=== PATIENT | female | born 1945 ===

== ENCOUNTER 2021-09-26 13:43 | Outpatient (REF) | payer OTHER, SELFPAY ==
--- NOTE | ~2021-09-26 | XR_ITS ---
EXAMINATION: XR ANKLE, RIGHT CLINICAL INFORMATION: Pain COMPARISON: Right ankle x-ray 04/07/2011 TECHNIQUE: AP, lateral, and mortise views of the right ankle. FINDINGS: Visualized portion of the distal tibia and fibula demonstrate no fracture. Ankle mortise is maintained. There is prominent asymmetric soft tissue swelling of the lateral ankle. No radiopaque foreign body. XR/XR ankle RT min 3V IMPRESSION: Soft tissue swelling of the lateral ankle without fracture.
== END 2021-09-26 13:44 | disposition home or self-care (01) ==
LOC: HO.HMGCX 13:43
PROVIDERS: Absent Provider Orthopaedic Surgery Adult Reconstructive Orthopaedic Surgery; PCP Internal Medicine; Visit Provider Physician Assistant
DX: M25.571 Pain in right ankle and joints of right foot (principal)
CPT/HCPCS: 73610

== ENCOUNTER 2022-11-06 13:08 | Emergency (ER) | payer OTHER, SELFPAY ==
--- NOTE | ~2022-11-06 | XR_ITS ---
EXAMINATION: XR CHEST CLINICAL INFORMATION: 77-year-old female with atrial fibrillation COMPARISON: None available. TECHNIQUE: Frontal view of the chest was obtained. FINDINGS: There is a lobulated lesion in the left lower lobe questionably bronchiectatic lung versus avulsion of subdiaphragmatic bowel. There is left lower lobe opacity due to pneumonia. Increased interstitial markings throughout the right lung most likely due to airspace disease also. Cardiomediastinal silhouette is unremarkable. XR/XR chest 1V IMPRESSION: Left basilar airspace disease and questionably avulsion of bowel loop through the hernia versus cystic bronchiectasis. Correlate with CT scan
--- NOTE | ~2022-11-06 | CT_ITS ---
EXAMINATION: CT CHEST WITHOUT CONTRAST CLINICAL INFORMATION: Abnormal chest x-ray with positive Covid COMPARISON: Chest radiograph 11/06/2022, upper GI 10/17/2017 TECHNIQUE: Multidetector volumetric CT imaging of the chest was done. Axial MIP volume rendering provided. Sagittal and coronal reformatted images were obtained. This CT examination was performed using dose optimization techniques as appropriate, variously including the following: *Automated exposure control *Adjustment of mA and/or kV according to patient size (this includes techniques or standardized protocols for targeted exams where dose is matched to indication/reason for exam; i.e. extremities or head) *Use of iterative reconstruction technique DLP: 170 mGy-cm FINDINGS: LUNGS: A large diaphragmatic hernia seen containing colon, the entire stomach and small bowel which extends up to the level of the aortic arch. There are underlying changes of COPD as well as some peripheral tree-in-bud abnormalities suggesting inflammatory disease. No groundglass infiltrates are seen to suggest Covid infection. MEDIASTINUM: See discussion above regarding large diaphragmatic hernia in the mediastinum CORONARY ARTERY CALCIFICATION: None visualized on this study. PLEURA: There is no pleural effusion. No pleural mass or thickening. AXILLA: No lymphadenopathy. UPPER ABDOMEN: Hepatic cysts are present. OSSEOUS STRUCTURES: Marked degenerative changes are present in the spine with scoliosis CT/CT chest wo IV con IMPRESSION: 1. Large diaphragmatic hernia containing stomach, colon and small bowel. 2. Underlying COPD. 3. Incidental note made of hepatic cysts and degenerative changes in the spine. 4. No suspicious pulmonary nodules are seen. There are some peripheral tree-in-bud abnormalities suggesting inflammatory disease. 5. No groundglass infiltrates are seen to suggest Covid disease. Fleischner guidelines were followed.
--- NOTE | 2022-11-06 13:24 | ECG_ITS ---
Test Reason : hld Blood Pressure : / mmHG Vent. Rate : 108 BPM Atrial Rate : 000 BPM P-R Int : 000 ms QRS Dur : 074 ms QT Int : 338 ms P-R-T Axes : 000 011 046 degrees QTc Int : 452 ms Atrial fibrillation with rapid ventricular response with premature ventricular or aberrantly conducted complexes Nonspecific T wave abnormality Abnormal ECG When compared with ECG of 11-NOV-2016 11:01, Atrial fibrillation has replaced Sinus rhythm Vent. rate has increased BY 43 BPM Nonspecific T wave abnormality now evident in Inferior leads Referred By: Marleny Keller Electronically Signed By:Maiocl Camara
[2022-11-06 13:31] VITALS: BP 110/60; BP 92/51; PULSE 160; PULSE 89; RESP 14; TEMP 36.9; O2SAT 97; BMI 23.7
--- NOTE | 2022-11-06 13:38 | ED_ITS ---
HPI - General Adult General Chief complaint: Arrhythmia/Palpitations Stated complaint: FEELS UNWELL,HR 178,97 S/P CARDIZEM,?COVID PER EMS Time Seen by Provider: 11/06/22 13:28 Source: patient, EMS, RN notes reviewed and old records reviewed Mode of arrival: EMS History of Present Illness HPI narrative: 77-year-old female with a past medical history of AFib on ASA, presenting to the ED complaining of generalized fatigue/lightheadedness and feeling unwell x 2 days. Patient was noted to be in AFib with RVR at rate of 178 by EMS, given 10 mg of IV Cardizem with good result. Patient states she believes she had COVID- 19. Denies chest pain, shortness of breath, abdominal pain, nausea/vomiting, pedal edema. Denies being on anticoagulation, muleser is Dr. Obrien from [facility] Onset (ago): day(s) Related Data Home Medications Medication Instructions Recorded Confirmed aspirin 81 mg tablet,delayed 81 mg PO DAILY 09/26/21 release atorvastatin 40 mg tablet 40 mg PO BEDTIME 09/26/21 ibuprofen 600 mg tablet 600 mg PO QID 09/26/21 Previous Rx's Medication Instructions Recorded ibuprofen 600 mg tablet 600 mg PO TID PRN pain #60 tabs 09/26/21 apixaban 5 mg tablet (Eliquis) 5 mg PO BID 30 days #60 tabs 11/06/22 Allergies Allergy/AdvReac Type Severity Reaction Status Date / Time No Known Allergies Allergy Verified 09/26/21 13:24 Review of Systems Review of Systems: Constitutional: No Fever, No Chills, +Fatigue, +Malaise ENT/Mouth: No Ear Pain, No Nasal Congestion, No sore throat, No Rhinorrhea, No Swallowing Difficulty Eyes: No Eye Pain, No Swelling, No Redness, No Vision Changes Cardiovascular: No Chest Pain, No SOB, No Edema, + Palpitations Respiratory: No Cough, No Sputum, No Dyspnea Gastrointestinal: No Nausea, No Vomiting, No Diarrhea, No Constipation, No Abdominal pain Genitourinary: No irregular bleeding, No Dysuria, No Urinary Frequency Musculoskeletal: No joint pain, No Myalgias, No Joint Swelling Skin: No Skin Lesions, No rash Neuro:+ Weakness, No Numbness, No Paresthesias, No Loss of Consciousness, +lightheaded, No Headache Yes all other systems are reviewed and are negative Constitutional: Constitutional: Reports as per HPI Neurologic: Denies Abnormal speech present [facility] Past Medical History Attestation statement: The following information was validated with the patient. Source: old records reviewed Social History Social History Advance Directives: No Advance Directives Information Provided: Yes Physical Exam ED Vital Signs: Vital Signs - 24 hr 11/06/22 13:31 11/06/22 17:44 11/06/22 22:00 Temperature 98.5 F 98.6 F Pulse Rate 89 80 74 Respiratory Rate 14 17 16 Blood Pressure 92/51 L 136/76 156/77 H Pulse Oximetry 97 95 96 Oxygen Delivery Method Room Air Room Air Room Air BMI result Body Mass Index 23.7 Const General: cooperative, healthy appearing, comfortable and no acute distress Orientation/consciousness: patient oriented x3 Limitations: no limitations HENMT Head: Yes normal to inspection and Yes atraumatic Ears: hearing grossly normal bilaterally General nose exam: Normal external nose present Face and sinus: Yes normal facial exam Eyes General: appearance normal, both eyes and all related structures EOM: EOMs intact bilaterally Neck Neck: Yes normal visual inspection and Yes no meningeal signs Resp Effort & Inspection: normal respiratory effort and no respiratory distress Auscultation: clear to auscultation bilaterally, no crackles, no rales, no rhonchi and no wheezes Cardio Rate: tachycardic Rhythm: abnormal rhythm Heart sounds: S1 normal heart sound present and S2 normal heart sound present GI Inspection: Yes normal to inspection Palpation (GI): Soft to palpation, nontender, no guarding and not rigid General: Yes no CVA tenderness Back/Spine/Pelvis Back: no CVA tenderness Skin Rashes: no rashes Wounds: no wounds Neuro General: patient oriented x3, tone normal, moves all extremities, no meningeal signs, no focal motor deficits and CN's II-XI intact bilaterally Cranial nerves: Yes CN's II-XII intact bilaterally and Yes Bilaterally intact EOM present Cognition (Neuro): normal cognition Speech: No Abnormal speech present Gait exam (Neuro): Normal gait present Motor exam (neuro): 5/5 motor strength present throughout and Pronator motor function not present Extrem General: Yes normal to inspection, Yes no pedal edema and Yes no calf tenderness Course Course Course Narrative: -patient's BP soft, additional Cardizem dose held, case discussed with Dr. Keller, will give 0.5 mg of IV Digoxin -153--mild leukopenia to 4.1. Troponin 284.7 > no priors to compare. Likely d emand ischemia from AFib with RVR. Patient continues to deny chest pain -COVID-19 positive >> low suspicion for PE > 1549--heart rate now 80's after IV Digoxin > appears patient is in sinus rhythm will obtain repeat EKG >> spoke with patients muleser Dr. Obrien, admits he previously recommended anticoagulation however patient refused. Is in agreement patient should be on AC, recommend Eliquis 5mg BID and discontinuation of ASA if patient is agreeable >> anticoagulation was discussed with patient including risk of CVA/PE with intermittent AFib, she is aware of risks and states she will think hard about it XR chest 1V IMPRESSION: Left basilar airspace disease and questionably avulsion of bowel loop through the hernia versus cystic bronchiectasis. Correlate with CT scan ?> will obtain CT for further evaluation -1729--ED care transferred to [facility] pending repeat troponin, CT, and dispo per results Reevaluation(s) Reevaluation #1: Patient's 2nd troponin did not increase by 50%. Chest CT negative for pneumonia and shows chronic large diaphragmatic hernia with colon/small bowel and stomach. Patient's repeat EKG sinus rhythm. Patient rate controlled. Case discussed with muleser Dr. Camara. He was send copy of patient's 3 EKGs and lab work. He was informed of patient's history, physical exam and diagnostics. He agreed patient could be discharged on Eliquis. Patient has follow-up with her muleser tomorrow. Patient informed to stop taking her aspirin. Patient will be discharged with Eliquis. Patient denies any chest pain shortness of breath abdominal pain, nausea, or vomiting. Patient denies constipation. Patient hernia can be followed outpatient. CT scan negative for bowel obstruction or incarcerated hernia. Time: 23:00 Medications Administered Discontinued Medications Generic Name Dose Route Start Last Admin Trade Name Freq PRN Reason Stop Dose Admin Aspirin 325 mg 11/06/22 15:35 11/06/22 17:17 Aspirin 325 Mg Tablet PO 11/06/22 15:36 325 mg ONCE ONE Administration Digoxin 0.5 mg 11/06/22 14:46 11/06/22 14:52 Digoxin 0.5 Mg/2 Ml Ampul IVPUSH 11/06/22 14:47 0.5 mg ONCE ONE Administration Diltiazem HCl 10 mg 11/06/22 13:49 11/06/22 14:52 Diltiazem Hcl 50 Mg/10 Ml Vial IVPUSH 11/06/22 13:50 Not Given STAT STA Sodium Chloride 1,000 mls @ 999 mls/hr 11/06/22 14:00 11/06/22 18:30 Ns IV 11/06/22 15:00 Infused .Q1H1M EDMOND Infusion Sodium Chloride 1,000 mls @ 999 mls/hr 11/06/22 15:30 11/06/22 18:31 Ns IV 11/06/22 16:30 Infused .Q1H1M EDMOND Infusion Medical Decision Making Medical Decision Making MDM Narrative: 77-year-old female with a past medical history of AFib on ASA, presenting to the ED complaining of generalized fatigue/lightheadedness and feeling unwell x 2 days. Patient was noted to be in AFib with RVR at rate of 178 by EMS, given 10 mg of IV Cardizem with good result. On exam mildly hypotensive 90s over 50s, heart rate during this riders evaluation 120s, lungs CTA, no focal neuro deficits, patient asymptomatic at present. Concern for AFib with RVR vs infectious etiology vs metabolic abnormalities. Lower suspicion for PE/ACS, CHF Plan: EKG, labs, CXR, IVF, rate control medication [id number] =3 > recommending anticoagulation Please refer to course for remaining clinical decision making, interpretation of labs/imaging results, and discussions with consultants and/or family members. Differential Diagnosis Differential Diagnoses: The differential diagnosis associated with the presentation includes As above Admission/Observation Consideration of admission/observation: Escalation of care including admission/observation considered Consult Healthcare Provider Management of the patient was discussed with: Sole Painter Lab Data [facility] Lab Attestation statement: I reviewed the patient's lab results. 11/06/22 14:39 11/06/22 13:34 Labs: Lab Results 11/06/22 11/06/22 11/06/22 Range/Units 13:34 13:34 14:36 WBC (4.8-10.8) X10*3/uL RBC (4.20-5.50) X10*6/uL Hgb (12.0-16.0) g/dl Hct (37.0-47.0) % MCV (80.0-98.0) fL MCH (27.0-33.0) pg MCHC (31.0-35.0) g/dl RDW (11.0-16.0) % Plt Count (160-400) X10*3/uL MPV (9.4-12.3) fL Immature Gran % (Auto) (0.0-0.4) % Neut % (Auto) (45-73) % Lymph % (Auto) (20-40) % Mcmullen % (Auto) (2-11) % Eos % (Auto) (0-4) % Baso % (Auto) (0-2) % Lymph # (Auto) (1.2-4.9) X10*3/uL Mcmullen # (Auto) (0.1-1.2) X10*3/uL Eos # (Auto) (0.0-0.4) X10*3/uL Baso # (Auto) (0.0-0.2) X10*3/uL Abs Immat Gran (auto) (0.00-0.03) X10*3/uL Absolute Neuts (auto) (2.0-8.3) x10*3/uL Absolute Nucleated RBC (0.0-0.012) X10*3/uL Nucleated RBC % (auto) (0.0-0.2) /100WBC Smear Tech's Comments PT 13.4 H (10.0-13.1) SEC INR 1.2 H (0.9-1.1) Sodium 142 (135-145) mmol/L Potassium 4.1 (3.3-5.1) mmol/L Chloride 108 (96-108) mmol/L Carbon Dioxide 26 (22-29) mmol/L Anion Gap 12 (12-20) BUN 15 (9-16) mg/dL Creatinine 0.89 (0.5-1.4) mg/dL Estim Creat Clear Calc 46.1 Estimated GFR > 60 Random Glucose 114 (60-115) mg/dL Calcium 8.0 L (8.4-10.2) mg/dL Magnesium 2.1 (1.6-2.6) mg/dL Total Bilirubin 0.4 (0.0-1.0) mg/dL AST 18 (5-31) U/L ALT 13 (0-31) U/L Alkaline Phosphatase 68 (39-117) U/L Troponin I High Sens (<3.5-17.0) ng/L B-Natriuretic Peptide (<100) pg/mL Total Protein 5.5 L (6.5-8.0) g/dL Albumin 3.3 L (3.5-5.0) g/dL Urine Color Urine Appearance Urine pH (5.0-9.0) Ur Specific [place] (1.005-1.025) Urine Protein (Neg-Trace) mg/dL Urine Glucose (UA) (Negative) mg/dL Urine Ketones (Negative) mg/dL Urine Blood (Negative) Urine Nitrite (Negative) Ur Leukocyte Esterase (Negative) Urine RBC (0-2) /HPF Urine WBC (0-5) /HPF Ur Squamous Epith Cells (0-2) /HPF Urine Bacteria (None Seen) Hyaline Casts (0-2) /LPF COVID-19 ([facility]SON) Positive A (Negative) COVID-19 Clin Com See Note Influenza Type A (ABDOUL) (Negative) Influenza Type B (ABDOUL) (Negative) Influenza A & B Note 11/06/22 11/06/22 11/06/22 Range/Units 14:39 14:39 14:39 WBC 4.1 L (4.8-10.8) X10*3/uL RBC 4.36 (4.20-5.50) X10*6/uL Hgb 13.2 (12.0-16.0) g/dl Hct 40.2 (37.0-47.0) % MCV 92.2 (80.0-98.0) fL MCH 30.3 (27.0-33.0) pg MCHC 32.8 (31.0-35.0) g/dl RDW 13.8 (11.0-16.0) % Plt Count 236 (160-400) X10*3/uL MPV 10.7 (9.4-12.3) fL Immature Gran % (Auto) 0.2 (0.0-0.4) % Neut % (Auto) 55.3 (45-73) % Lymph % (Auto) 18.1 L (20-40) % Mcmullen % (Auto) 26.2 H (2-11) % Eos % (Auto) 0.0 (0-4) % Baso % (Auto) 0.2 (0-2) % Lymph # (Auto) 0.7 L (1.2-4.9) X10*3/uL Mcmullen # (Auto) 1.1 (0.1-1.2) X10*3/uL Eos # (Auto) 0.0 (0.0-0.4) X10*3/uL Baso # (Auto) 0.0 (0.0-0.2) X10*3/uL Abs Immat Gran (auto) 0.01 (0.00-0.03) X10*3/uL Absolute Neuts (auto) 2.3 (2.0-8.3) x10*3/uL Absolute Nucleated RBC 0.000 (0.0-0.012) X10*3/uL Nucleated RBC % (auto) 0.0 (0.0-0.2) /100WBC Smear Tech's Comments VERIFIED PT (10.0-13.1) SEC INR (0.9-1.1) Sodium (135-145) mmol/L Potassium (3.3-5.1) mmol/L Chloride (96-108) mmol/L Carbon Dioxide (22-29) mmol/L Anion Gap (12-20) BUN (9-16) mg/dL Creatinine (0.5-1.4) mg/dL Estim Creat Clear Calc Estimated GFR Random Glucose (60-115) mg/dL Calcium (8.4-10.2) mg/dL Magnesium (1.6-2.6) mg/dL Total Bilirubin (0.0-1.0) mg/dL AST (5-31) U/L ALT (0-31) U/L Alkaline Phosphatase (39-117) U/L Troponin I High Sens 284.7 H* (<3.5-17.0) ng/L B-Natriuretic Peptide 143 H (<100) pg/mL Total Protein (6.5-8.0) g/dL Albumin (3.5-5.0) g/dL Urine Color Urine Appearance Urine pH (5.0-9.0) Ur Specific [place] (1.005-1.025) Urine Protein (Neg-Trace) mg/dL Urine Glucose (UA) (Negative) mg/dL Urine Ketones (Negative) mg/dL Urine Blood (Negative) Urine Nitrite (Negative) Ur Leukocyte Esterase (Negative) Urine RBC (0-2) /HPF Urine WBC (0-5) /HPF Ur Squamous Epith Cells (0-2) /HPF Urine Bacteria (None Seen) Hyaline Casts (0-2) /LPF COVID-19 ([facility]) (Negative) COVID-19 Clin Com Influenza Type A (ABDOUL) (Negative) Influenza Type B (ABDOUL) (Negative) Influenza A & B Note 11/06/22 11/06/22 11/06/22 Range/Units 15:23 15:23 17:20 WBC (4.8-10.8) X10*3/uL RBC (4.20-5.50) X10*6/uL Hgb (12.0-16.0) g/dl Hct (37.0-47.0) % MCV (80.0-98.0) fL MCH (27.0-33.0) pg MCHC (31.0-35.0) g/dl RDW (11.0-16.0) % Plt Count (160-400) X10*3/uL MPV (9.4-12.3) fL Immature Gran % (Auto) (0.0-0.4) % Neut % (Auto) (45-73) % Lymph % (Auto) (20-40) % Mcmullen % (Auto) (2-11) % Eos % (Auto) (0-4) % Baso % (Auto) (0-2) % Lymph # (Auto) (1.2-4.9) X10*3/uL Mcmullen # (Auto) (0.1-1.2) X10*3/uL Eos # (Auto) (0.0-0.4) X10*3/uL Baso # (Auto) (0.0-0.2) X10*3/uL Abs Immat Gran (auto) (0.00-0.03) X10*3/uL Absolute Neuts (auto) (2.0-8.3) x10*3/uL Absolute Nucleated RBC (0.0-0.012) X10*3/uL Nucleated RBC % (auto) (0.0-0.2) /100WBC Smear Tech's Comments PT (10.0-13.1) SEC INR (0.9-1.1) Sodium (135-145) mmol/L Potassium (3.3-5.1) mmol/L Chloride (96-108) mmol/L Carbon Dioxide (22-29) mmol/L Anion Gap (12-20) BUN (9-16) mg/dL Creatinine (0.5-1.4) mg/dL Estim Creat Clear Calc Estimated GFR Random Glucose (60-115) mg/dL Calcium (8.4-10.2) mg/dL Magnesium (1.6-2.6) mg/dL Total Bilirubin (0.0-1.0) mg/dL AST (5-31) U/L ALT (0-31) U/L Alkaline Phosphatase (39-117) U/L Troponin I High Sens 350.8 H* (<3.5-17.0) ng/L B-Natriuretic Peptide (<100) pg/mL Total Protein (6.5-8.0) g/dL Albumin (3.5-5.0) g/dL Urine Color Yellow Urine Appearance Clear Urine pH 6.5 (5.0-9.0) Ur Specific [place] <= 1.005 (1.005-1.025) Urine Protein Negative (Neg-Trace) mg/dL Urine Glucose (UA) Negative (Negative) mg/dL Urine Ketones Negative (Negative) mg/dL Urine Blood Small (1+) H (Negative) Urine Nitrite Negative (Negative) Ur Leukocyte Esterase Negative (Negative) Urine RBC 6-10 H (0-2) /HPF Urine WBC 0-5 (0-5) /HPF Ur Squamous Epith Cells 0-2 (0-2) /HPF Urine Bacteria None Seen (None Seen) Hyaline Casts 3-5 (0-2) /LPF COVID-19 ([facility]) (Negative) COVID-19 Clin Com Influenza Type A (ABDOUL) Negative (Negative) Influenza Type B (ABDOUL) Negative (Negative) Influenza A & B Note See Note Independent Interpretation I performed an independent interpretation of an: EKG (EKG AFib with RVR at a rate of 108. QRS 74. QTC 452. No STEMI.) Interpretation: Repeat EKG at 16:58 normal sinus rhythm at a rate of 82. QTC 427. Sinus rhythm has replaced AFib. No STEMI Radiology Impression Discussion of test interpretation with radiology: I have reviewed the ra diologist's reading. External Record Review External record reviewed: Inpatient record, Office record, Outpatient record, Prior outpatient labs, Prior outpatient radiology, Primary care record and Outside ED record Tests considered The following testing was considered but not selected: As above Critical Care Time Critical Care Time Critical Care Time: Yes Total Critical Care Time: 45 Attestation: I have personally provided critical care time exclusive of time spent on separately billable procedures. Time includes review of lab data, radiology results, discussion with consultants, and monitoring for potential decompensation. Intervention performed as documented. Discharge Plan Discharge Clinical Impression: Atrial fibrillation with rapid ventricular response, COVID-19 Patient Disposition: Home, Self-Care Instructions: A-fib (Atrial Fibrillation) (ED), Hiatal Hernia (ED) Additional Instructions: You have COVID. You should be on blood thinners, having AFib and not being on a blood thinner put you at risk of stroke and blood clots You need to have close follow-up with her muleser If you develop shortness breath/chest pain, symptoms persist or recur/or unremitting return to the emergency department immediately. Stop taking your aspirin. You will be discharged with eliquis. Do not take any NSAIDS. Please follow-up with primary care provider and muleser. Prescriptions: New Eliquis 5 mg tablet 5 mg PO BID 30 Days Qty: 60 0RF No Action atorvastatin 40 mg tablet 40 mg PO BEDTIME aspirin 81 mg tablet,delayed release (DR/EC) 81 mg PO DAILY ibuprofen 600 mg tablet 600 mg PO QID ibuprofen 600 mg tablet 600 mg PO TID PRN (Reason: pain) Qty: 60 0RF Referrals: Tima Obrien MD [Physician] - 5 days Interventions: ED Discharge Assessment Last Done: 11/06/22 23:18 Discharge Date/Time: 11/06/22 23:18 Print Language: Ugandan
[2022-11-06] MEDS: 0.9 % Sodium Chloride 1,000 ML 999 ML IV ×2 (14:24→17:18)
[2022-11-06] MEDS: Digoxin 0.5 MG/2 ML AMPUL IVPUSH (14:52)
[2022-11-06 14:57] LABS: INTERNATIONAL NORM RATIO 1.2 (0.9-1.1); Prothrombin Time 13.4 SEC (10.0-13.1)
[2022-11-06 14:58] LABS: Basophils Percent Auto 0.2 % (0-2); Hematocrit 40.2 % (37.0-47.0); Hemoglobin 13.2 g/dl (12.0-16.0); Imm Gran Abs Auto 0.01 X10*3/uL (0.00-0.03); Imm Gran Pct Auto 0.2 % (0.0-0.4); Lymphocytes Absolute Auto 0.7 X10*3/uL (1.2-4.9); Lymphocytes Percent Auto 18.1 % (20-40); MANUAL DIFF FLAG SCAN; Mean Corpuscular HGB Conc 32.8 g/dl (31.0-35.0); Mean Corpuscular Hemoglobin 30.3 pg (27.0-33.0); Mean Corpuscular Volume 92.2 fL (80.0-98.0); Mean Platelet Volume 10.7 fL (9.4-12.3); Monocytes Absolute Auto 1.1 X10*3/uL (0.1-1.2); Monocytes Percent Auto 26.2 % (2-11); Neutrophils Absolute Auto 2.3 x10*3/uL (2.0-8.3); Neutrophils Percent Auto 55.3 % (45-73); Platelet Count 236 X10*3/uL (160-400); Red Blood Count 4.36 X10*6/uL (4.20-5.50); Red Cell Distribution Width 13.8 % (11.0-16.0); SCAN SMEAR FLAG 1; White Blood Count 4.1 X10*3/uL (4.8-10.8)
[2022-11-06 15:09] LABS: COVID-19 Test Positive (Negative); IDNOW Serial# 08D9AD1C
[2022-11-06 15:18] LABS: SLIDE REVIEW VERIFIED
[2022-11-06 15:20] LABS: Alanine Aminotransferase 13 U/L (0-31); Albumin Level 3.3 g/dL (3.5-5.0); Alkaline Phosphatase 68 U/L (39-117); Anion Gap 12 (12-20); Aspartate Amino Transferase 18 U/L (5-31); Bilirubin Total 0.4 mg/dL (0.0-1.0); Blood Urea Nitrogen 15 mg/dL (9-16); Carbon Dioxide 26 mmol/L (22-29); Chloride 108 mmol/L (96-108); Creatinine Clr Calc Pharmacy 46.1; Estimated Glomerular Filt Rate > 60; Glucose Random 114 mg/dL (60-115); Potassium 4.1 mmol/L (3.3-5.1); Sodium 142 mmol/L (135-145); Total Protein 5.5 g/dL (6.5-8.0)
[2022-11-06 15:23] LABS: Troponin-I High Sensitivity 284.7 ng/L (<3.5-17.0)
[2022-11-06 15:33] LABS: Appearance Urine Clear; Color Urine Yellow; Glucose Urine UA Negative (Negative); Leukocyte Esterase Urine Negative (Negative); Nitrite Urine Negative (Negative); PH 6.5 (5.0-9.0); Specific Gravity - Urine <= 1.005 (1.005-1.025); UMIC TRIGGER UACC YES; Urine Blood Small (1+) (Negative); Urine Ketones Negative (Negative); Urine Protein Negative (Neg-Trace)
[2022-11-06 15:38] LABS: Bacteria Urine None Seen (None Seen); Squamous Epithelial Cell Urine 0-2 /HPF (0-2); WBC Urine 0-5 /HPF (0-5)
--- NOTE | 2022-11-06 15:49 | ECG_ITS ---
Test Reason : sinus Blood Pressure : / mmHG Vent. Rate : 082 BPM Atrial Rate : 082 BPM P-R Int : 190 ms QRS Dur : 074 ms QT Int : 366 ms P-R-T Axes : 057 048 081 degrees QTc Int : 427 ms Normal sinus rhythm Nonspecific T wave abnormality Abnormal ECG When compared with ECG of 06-NOV-2022 13:43, Sinus rhythm has replaced Atrial fibrillation Referred By: Surekha Pagan Electronically Signed By:Maicol Camara
[2022-11-06 15:59] LABS: IDNOW Serial# BCCEAD1C; Influenza A Negative (Negative); Influenza B2 Negative (Negative)
[2022-11-06 16:04] LABS: Magnesium 2.1 mg/dL (1.6-2.6)
[2022-11-06 16:20] LABS: B Type Natriuretic Peptide 143 pg/mL (<100)
[2022-11-06] MEDS: Aspirin 325 MG TABLET PO (17:17)
[2022-11-06 17:44] VITALS: BP 136/76; PULSE 80; RESP 17; O2SAT 95
[2022-11-06 18:01] LABS: Troponin-I High Sensitivity 350.8 ng/L (<3.5-17.0)
--- NOTE | 2022-11-06 18:09 | ECG_ITS ---
Test Reason : ELEVATED TROPONIN Blood Pressure : / mmHG Vent. Rate : 073 BPM Atrial Rate : 073 BPM P-R Int : 200 ms QRS Dur : 076 ms QT Int : 394 ms P-R-T Axes : 066 052 121 degrees QTc Int : 434 ms Normal sinus rhythm Nonspecific T wave abnormality Abnormal ECG When compared with ECG of 06-NOV-2022 16:58, No significant change was found Referred By: Moshe Esquivel Electronically Signed By:Maicol Camara
[2022-11-06 22:00] VITALS: BP 156/77; PULSE 74; RESP 16; TEMP 37; O2SAT 96
== END 2022-11-06 23:18 | disposition home or self-care (01) ==
PROVIDERS: Physician Assistant; Student in an Organized Health Care Education/Training Program; Emergency Provider Emergency Medicine; PCP Internal Medicine
DX: U07.1 COVID-19 (principal); I48.91 Unspecified atrial fibrillation
CPT/HCPCS: 36415; 71045; 71250; 80053; 81001; 83735; 83880; 84484; 85025; 85610; 87502; 87635; 93005; 96361; 96374; 99285; J1160